=== PATIENT | male | born 1975 | race Two or more races ===

== ENCOUNTER 2020-06-08 17:17 | Emergency (ER) | payer OTHER ==
[~2020-06-08] VITALS: Ht 172.7 cm; Wt 100.0 kg
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
--- NOTE | 2020-06-08 17:26 | NUR ---
[facility] AT BEDSIDE.
--- NOTE | 2020-06-08 19:17 | NUR ---
PT IN [place].
[2020-06-08] MEDS ORDERED: METF500T17 PO (19:24)
[2020-06-08 20:14] VITALS: BP 119/70
== END 2020-06-08 20:38 | disposition home or self-care (01) ==
LOC: ED 20:00
DX: S00.11XA Contusion of right eyelid and periocular area, initial encounter (principal); S90.32XA Contusion of left foot, initial encounter; M79.672 Pain in left foot; E11.9 Type 2 diabetes mellitus without complications; I10 Essential (primary) hypertension; Y04.8XXA Assault by other bodily force, initial encounter; Y93.89 Activity, other specified; Y92.89 Other specified places as the place of occurrence of the external cause; Y99.8 Other external cause status
CPT/HCPCS: 70486; 99284